=== PATIENT | male | born 1995 | race Two or more races ===

== ENCOUNTER 2024-02-07 10:48 | Emergency (ER) | payer BC, SELFPAY ==
[2024-02-07 10:48] VITALS: BMI 21.7
--- NOTE | 2024-02-07 10:56 | XR_ITS ---
Examination: PA lateral chest 2 views TECHNIQUE: Upright PA lateral chest 2 views Exam date and time: February 07, 2024 1108 hours INDICATIONS: Right-sided chest pain beginning 2 days ago. FINDINGS: Pneumonia anterior segment right upper lobe Normal heart size Intact osseous structures IMPRESSION: Pneumonia anterior segment right upper lobe, differential would include tuberculosis
[2024-02-07 10:57] VITALS: BP 126/82; PULSE 95; RESP 16; TEMP 36.8; O2SAT 98; BMI 21.9
--- NOTE | 2024-02-07 10:57 | PD.EDRME ---
Rapid Medical Screening Exam RME Arrival date/time: 02/07/24 10:48 28-year-old male presents emergency department complaints of chest pain worse on inspiration Chief Complaint: Chest Pain
[2024-02-07 11:26] LABS: Basophils % (Auto) 0 % (0-2.5); Eosinophils # (Auto) 0.1 Thou/mm3 (0.0-0.5); Eosinophils % (Auto) 1 % (0-10); Hematocrit 42.5 % (41.0-53.0); Hemoglobin 14.4 g/dL (13.5-16.0); Immature Granulocytes % (Auto) 1 % (0-0); Immature Granulocytes Auto 0.07 Thou/mm3 (0.00-0.00); Lymphocytes # (Auto) 1.3 Thou/mm3 (1.0-4.8); Lymphocytes % (Auto) 9 % (10-50); Mean Corpuscular HGB Conc 33.9 g/dl (31.0-37.0); Mean Corpuscular Hemoglobin 30.4 pg (25.0-35.0); Mean Corpuscular Volume 90 fL (80-100); Monocytes # (Auto) 1.2 Thou/mm3 (0.0-0.8); Monocytes % (Auto) 8 % (0-12); Neutrophils # (Auto) 12.3 Thou/mm3 (1.8-7.7); Neutrophils % (Auto) 82 % (37-80); Nucleated Red Blood Cell % 0 /100 WBC (0); Platelet Count 215 Thou/mm3 (140-440); RDW Standard Deviation 41.7 fL (35.1-43.9); Red Blood Count 4.73 Miln/mm3 (4.50-5.90); White Blood Count 15.1 Thou/mm3 (3.8-10.6)
[2024-02-07 11:58] LABS: Alanine Aminotransferase 22 U/L (10-49); Albumin, Serum 5.1 gm/dL (3.5-5.0); Alkaline Phosphatase 73 U/L (46-116); Anion Gap 8 (7-16); Aspartate Amino Transferase 18 U/L (0-34); BUN/Creatinine Ratio 14 Ratio (12-20); Bilirubin,Total 1.1 mg/dL (0.3-1.2); Blood Urea Nitrogen 14 mg/dL (9-23); Calcium 9.6 mg/dL (8.3-10.6); Calcium (Corrected) 9.6 mg/dL (8.5-10.1); Carbon Dioxide 26.3 mMol/L (20.0-31.0); Chloride 99 mMol/L (98-107); Estimated Creatinine Clearance 119.2 mL/min (>60); Globulin 2.5 gm/dL (2.3-3.5); Glucose 105 mg/dL (74-106); Lipase 32 U/L (12-53); Osmolality,Calculated 266 (275-295); Potassium 3.9 mMol/L (3.4-5.1); Sodium 133 mMol/L (136-145); Total Protein 7.6 gm/dL (5.7-8.2); Troponin I < 0.002 ng/mL (0.0-0.045); eGFR > 60 See Note
--- NOTE | 2024-02-07 12:44 | EDNOTE_ITS ---
ED Chest Pain RME/HPI General Chief Complaint: Chest Pain Stated Complaint: CHEST PAIN WHEN BREATHING Time Seen by Provider: 02/07/24 12:44 Arrival date/time: 02/07/24 10:48 28-year-old male with no significant medical problems presents emergency department complaints of chest pain when taking a deep breath patient reports pain is on the right side patient reports no fever nausea or vomiting. There are no other associated symptoms or aggravating factors no other modifying factors, patient denies taking medication before coming to ER today Limitations: no limitations RME / HPI RME / HPI narrative: 02/07/24 10:48 28-year-old male presents emergency department complaints of chest pain worse on inspiration Related Data Previous Rx's ?Medication ?Instructions ?Recorded ibuprofen 600 mg tablet 600 mg PO Q6H #30 tabs 02/07/24 levofloxacin 750 mg tablet 750 mg PO Q24H 5 days #5 tabs 02/07/24 Allergies Allergy/AdvReac Type Severity Reaction Status Date / Time NKA* Allergy Uncoded 02/07/24 10:50 Review of Systems Review of Systems Systems Reviewed: All systems reviewed, normal except as documented Constitutional Constitutional: Reports system reviewed and no additional complaints, except as documented, Denies fever(s) and Denies headache(s) Eyes Eyes: Reports system reviewed and no additional complaints, except as documented and Denies blurry vision ENT Ears, Nose, Mouth, and Throat: Reports system reviewed and no additional complaints, except as documented, Denies headache(s), Denies nasal congestion and Denies nasal discharge Cardiovascular Cardiovascular: Reports system reviewed and no additional complaints, except as documented, Reports chest pain and Denies dyspnea Respiratory Respiratory: Reports system reviewed and no additional complaints, except as documented, Denies chest congestion, Reports cough (Mild) and Denies dyspnea Gastrointestinal Gastrointestinal: Reports system reviewed and no additional complaints, except as documented and Denies abdominal pain Integumentary/Breasts Skin/Breast: Reports system reviewed and no additional complaints, except as documented and Denies rash Neurologic Neurologic: Reports system reviewed and no additional complaints, except as documented, Reports as per HPI and Denies headache(s) Past Medical History Social History SMOKING STATUS: Never smoker ED Exam General Limitations: Present no limitations General appearance: Present alert and in no apparent distress Head Head exam: Present atraumatic Eye Eye exam: Present normal appearance, PERRL and EOMI ENT ENT exam: Present normal exam, normal oropharynx and mucous membranes moist Neck Neck exam: Present normal inspection, full ROM and trachea midline Chest Chest inspection: Present normal inspection and symmetric chest wall rise Respiratory Respiratory exam: Present normal lung sounds bilaterally Cardiovascular Cardiovascular exam: Present regular rate, normal rhythm and normal heart sounds; Absent bradycardia, tachycardia, irregular rhythm or JVD Abdominal Exam Abdominal exam: Present soft and normal bowel sounds; Absent distention, tenderness, guarding, rebound or rigidity Extremities Exam Extremities exam: Present normal inspection and full ROM Back Exam Back exam: Present normal inspection and full ROM Neurological Exam Neurological exam: Present alert, oriented X3 and CN II-XII intact Psychiatric Psychiatric exam: Present normal affect and normal mood Skin Skin exam: Present warm, dry, intact and normal color Course Quality Measures none Orders Category Date Time Status EKG (ED ONLY) *Do not use* NOW Care 02/07/24 10:56 Completed EKG (ED Only) Stat Exams 02/07/24 10:56 Ordered XR chest 2V Stat Exams 02/07/24 10:56 Completed CBC Stat Lab 02/07/24 11:01 Completed Cocci Serology IgM with reflex to IgG [Cocci Serology, Lab 02/07/24 13:05 Received Unk History] Stat Comprehensive Metabolic Panel Stat Lab 02/07/24 11:01 Completed Lipase Stat Lab 02/07/24 11:01 Completed Troponin I Stat Lab 02/07/24 11:01 Completed Lidocaine 1% 20 ml [Xylocaine 1% 20 ML] Med 02/07/24 12:44 Discontinued 2.1 ml INFL X1 ONE [id number] [Rocephin] Med 02/07/24 12:44 Discontinued 1,000 mg IM X1 ONE Vital Signs Vital signs: Vital Signs Temperature 98.3 F 02/07/24 10:57 Pulse Rate 95 02/07/24 10:57 Respiratory Rate 16 02/07/24 10:57 Blood Pressure 126/82 02/07/24 10:57 Pulse Oximetry (%) 98 02/07/24 10:57 Oxygen Delivery Method Room Air 02/07/24 10:57 O2 saturation 98% on room air within normal limits Chest Pain MDM Narrative MDM Narrative:: 28-year-old male with no significant medical problems presents emergency department complaints of chest pain when taking a deep breath patient reports pain is on the right side patient reports no fever nausea or vomiting. There are no other associated symptoms or aggravating factors no other modifying factors, patient denies taking medication before coming to ER today On exam patient well-appearing patient does not appear ill or toxic in no acute distress Lab work chest x-ray and EKG obtained Lab work unremarkable EKG unremarkable Coccidiomycosis lab test ordered Chest x-ray consistent with pneumonia Patient given Rocephin here discharged home on Levaquin patient instructed have repeat x-ray in 1 week Patient discharged home in no distress to follow-up with primary care doctor in the next 24 to 48 hours and for any worsening symptoms to return to the ER immediately Patient data External records reviewed:: [facility] previous records Clinical information provided by:: patient Social determinants that could affect healthcare access:: none Patient has the following chronic illnesses:: None How is presenting disease/condition affected by chronic disease/condition?: no chronic disease Evaluation data The following diagnostics were reviewed and interpreted by me:: lab results, radiology exam(s) and EKG tracing(s) Lab and/or radiology exams considered but not ordered:: Labs, radiology, EKG obtained Interpretation Summary: Reviewed by me Medications / Prescriptions Medications or Prescriptions considered but not ordered:: Given Medication administrations:: Medication Administration History Discontinued Medications Ceftriaxone Sodium (Ceftriaxone Sod Inj 1,000 Mg Vial) 1,000 mg IM X1 ONE Stop: 02/07/24 12:45 Last Admin: 02/07/24 12:50 Dose: 1,000 mg Documented By: Lidocaine HCl (Lidocaine Hcl 1% 20 Ml Vial) 2.1 ml INFL X1 ONE Stop: 02/07/24 12:45 Last Admin: 02/07/24 12:51 Dose: 2.1 ml Documented By: Given Consultations Consultation(s) initiated? (list below): No Diagnosis Chest Pain Differential Diagnosis: fracture of rib, pneumothorax, atypical chest pain, st elevation myocardial infarction and chest pain Most likely diagnosis given after review of the tests above:: Pneumonia Admission Indicated Admission indicated?: not indicated Admission Request Was there a request for admission?: No Disposition Plan Disposition Plan: Discharge Discharge Attestation Discharge Attestation: The patient and all family members were given an opportunity to ask questions and understood the discharge instructions. Discharge instructions specifically effects, indications for sooner follow up or return to the emergency department, and the expected course of current diagnosis. Patient condition: Stable Discharge Plan Plan Patient Disposition: HOME (Self Care) Disposition Comment: Stable Prescriptions/Referrals Prescriptions/Med Rec: New ibuprofen 600 mg tablet 600 mg PO Q6H Qty: 30 0RF levofloxacin 750 mg tablet 750 mg PO Q24H 5 Days Qty: 5 0RF Referrals: No Primary/Family,Physician [Primary Care Provider] - 02/08/24 Problem List Clinical Impression: Pneumonia Patient/Caregiver Discharge Instructions Education Materials: ED Pneumonia (Adult) Additional Instructions: Please follow up with your primary care doctor in the next 24-48hrs for any worsening symptoms return here immediately Please follow-up on the results of your valley fever test Please have repeat x-ray in 1 week Print Language: Kinyarwanda Stand Alone Forms: Ying Award Info., Work/School Release, Patient Portal Info Letter PA/GREG Supervising Physician PA/GREG Supervising Physician: Dr Dixon
[2024-02-07] MEDS: cefTRIAXone SOD INJ 1,000 MG VIAL 1000 MG IM (12:50)
[2024-02-07] MEDS: LIDOCAINE HCL 1% 20 ML VIAL 2.1 ML INFL (12:51)
[2024-02-08 14:32] LABS: Cocci Serology, IgM Negative (Negative)
[2024-02-09 13:47] LABS: Cocci Serology, IgG Negative (Negative)
== END 2024-02-07 13:11 | disposition home or self-care (01) ==
PROVIDERS: Nurse Practitioner Primary Care; Emergency Provider Emergency Medicine
DX: J18.9 Pneumonia, unspecified organism (principal)
CPT/HCPCS: 36415; 71046; 80053; 83690; 84484; 85025; 86331; 86635; 93005; 96372; 99283; J0696; J3490